=== PATIENT | female | born 1985 | race Two or more races ===

== ENCOUNTER 2022-07-05 13:15 | Inpatient (IN) | payer OTHER ==
[~2022-07-05] VITALS: Ht 180.3 cm; Wt 82.6 kg
[2022-07-25] MEDS ORDERED: SYNTHROID137 MCG PO (13:47)
[2022-07-25] MEDS ORDERED: PRENATABS RX T1 EACH PO (13:47)
== END 2022-07-28 13:11 | disposition home or self-care (01) | DRG 807 ==
LOC: OB/GYN 07-21 13:15 → LDR 07-25 13:29 → OB/GYN 07-26 14:32
PROVIDERS: ADMIT Obstetrics & Gynecology Maternal & Fetal Medicine; ATTEND Obstetrics & Gynecology Maternal & Fetal Medicine
PROC: 3E0P7VZ Introduction of Hormone into Female Reproductive, Via Natural or Artificial Opening (ICD-10-PCS; 2022-07-25)
PROC: 4A1HXCZ Monitoring of Products of Conception, Cardiac Rate, External Approach (ICD-10-PCS; 2022-07-25)
PROC: 10E0XZZ Delivery of Products of Conception, External Approach (ICD-10-PCS; principal; 2022-07-26)
PROC: 0KQM0ZZ Repair Perineum Muscle, Open Approach (ICD-10-PCS; 2022-07-26)
PROC: 0W8NXZZ Division of Female Perineum, External Approach (ICD-10-PCS; 2022-07-26)
PROC: 3E033VJ Introduction of Other Hormone into Peripheral Vein, Percutaneous Approach (ICD-10-PCS; 2022-07-26)
DX: O70.1 Second degree perineal laceration during delivery (principal); Z37.0 Single live birth; Z3A.40 40 weeks gestation of pregnancy; Z20.822 Contact with and (suspected) exposure to COVID-19

== ENCOUNTER → 2022-07-17 | Outpatient (CLI) | payer OTHER | END | disposition home or self-care (01) | LOC: NST 11:30 | PROVIDERS: ATTEND Obstetrics & Gynecology Maternal & Fetal Medicine | DX: Z34.83 Encounter for supervision of other normal pregnancy, third trimester (principal) ==

== ENCOUNTER 2022-07-22 11:20 | Outpatient (CLI) | payer OTHER | END 2022-07-22 11:52 | disposition home or self-care (01) | LOC: NST 11:20 | PROVIDERS: ATTEND Obstetrics & Gynecology Maternal & Fetal Medicine | DX: Z34.83 Encounter for supervision of other normal pregnancy, third trimester (principal) ==

== ENCOUNTER 2022-07-25 08:09 | Outpatient (CLI) | payer OTHER ==
[2022-07-25] MEDS ORDERED: PRENATABS RX T1 EACH PO (13:47)
[2022-07-25] MEDS ORDERED: SYNTHROID137 MCG PO (13:47)
== END 2022-07-25 08:45 | disposition home or self-care (01) ==
LOC: NST 08:09
PROVIDERS: ATTEND Obstetrics & Gynecology Maternal & Fetal Medicine
DX: Z34.83 Encounter for supervision of other normal pregnancy, third trimester (principal)

== ENCOUNTER 2024-09-26 08:17 | Inpatient (IN) | payer OTHER ==
[2024-09-26] VITALS (7 sets, daily range): BP systolic 102–118; BP diastolic 52–75
[~2024-09-26] VITALS: Ht 177.8 cm; Wt 80.7 kg
[~2024-09-26 08:17] MED LIST: PRENATABS RX T1 EACH PO; SYNTHROID137 MCG PO
[2024-09-26] MEDS ORDERED: AMPICILLIN SODIUM 2,000 MG VIAL IV ONE (08:30)
[2024-09-26] MEDS ORDERED: RINGERS SOLUTION,LACTATED 1,000 ML IV SCH (08:30)
[2024-09-26] MEDS ORDERED: AMPICILLIN SODIUM 1,000 MG VIAL IV SCH (09:00)
[2024-09-26 09:28] LABS: HEMATOCRIT 32.7 % (36.0-45.00); HEMOGLOBIN 10.7 g/dL (12.0-15.00); MEAN CELL VOLUME 85.6 fL (80.00-100.00); MEAN CORPUSCULAR HEMOGLOBIN 28.1 pg (27.00-32.0); MEAN CORPUSCULAR HGB CONC 32.8 g/dl (32.0-36.0); PLATELET COUNT 301 K/uL (150-450); RED BLOOD COUNT 3.82 M/uL (4.00-6.00); RED CELL DISTRIBUTION WIDTH 14.3 % (11.5-14.5)
[2024-09-26 10:04] LABS: INR < 0.93; PARTIAL THROMBOPLASTIN TIME 25.6 SECONDS (22.0-34.0); PROTHROMBIN TIME 9.8 SECONDS (9.0-11.5)
[2024-09-26 10:09] LABS: ALBUMIN 2.8 gm/dL (3.4-5.0); BILIRUBIN TOTAL 0.32 mg/dL (0.3-1.2); CREATININE SERUM 0.69 mg/dL (0.55-1.02); GFR 95.73; POTASSIUM 4.5 mEq/L (3.5-5.1); TOTAL PROTEIN 6.8 gm/dL (6.4-8.2)
[2024-09-26] MEDS ORDERED: OxyCODONE HCL/APAP UD (PERCOCET) PO PRN (12:30)
[2024-09-26] MEDS ORDERED: IBUprofen 400 MG TABLET PO PRN (12:30)
[2024-09-26] MEDS ORDERED: OXYTOCIN 1,000 ML IV SCH (12:30)
[2024-09-26] MEDS ORDERED: LIDOCAINE HCL 1% 10ML VIAL IJ ONE (13:00)
[2024-09-26] MEDS ORDERED: ERYTHROMYCIN BASE OPHT 1GM EACH TUBE OP ONE (13:00)
[2024-09-26] MEDS ORDERED: OXYTOCIN 20 UNITS/500ML RL PIGGYBAG IV ONE (13:00)
[2024-09-26] MEDS ORDERED: CHLORHEXIDINE GLUCONATE 120 ML BOTTLE TOP ONE (13:00)
[2024-09-27 00:44] VITALS: BP 97/61
[2024-09-27 08:06] VITALS: BP 102/66
[2024-09-27 15:47] VITALS: BP 120/72
[2024-09-27] MEDS ORDERED: DOCUSATE SODIUM 100MG CAP PO SCH (17:00)
[2024-09-28 00:44] VITALS: BP 112/70
[2024-09-28 07:52] VITALS: BP 108/68
== END 2024-09-28 12:45 | disposition home or self-care (01) | DRG 807 ==
LOC: LDR 08:17 → OB/GYN 08:17 → LDR 09:13 → OB/GYN 17:43
PROVIDERS: Obstetrics & Gynecology; ADMIT Obstetrics & Gynecology Maternal & Fetal Medicine; ATTEND Obstetrics & Gynecology Maternal & Fetal Medicine
PROC: 10E0XZZ Delivery of Products of Conception, External Approach (ICD-10-PCS; principal; 2024-09-26)
PROC: 0KQM0ZZ Repair Perineum Muscle, Open Approach (ICD-10-PCS; 2024-09-26)
PROC: 4A1HXCZ Monitoring of Products of Conception, Cardiac Rate, External Approach (ICD-10-PCS; 2024-09-26)
DX: O70.1 Second degree perineal laceration during delivery (principal); O69.81X0 Labor and delivery complicated by cord around neck, without compression, not applicable or unspecified; Z37.0 Single live birth; Z3A.38 38 weeks gestation of pregnancy; Z20.822 Contact with and (suspected) exposure to COVID-19